=== PATIENT | female | born 1985 ===

== ENCOUNTER 2017-07-28 15:40 | Emergency (ER) | payer SELFPAY ==
[2017-07-28 15:49] VITALS: BP 136/86; PULSE 66; RESP 18; TEMP 97.6; O2SAT 100
== END 2017-07-28 17:58 | disposition left against medical advice (07) ==
LOC: NED 15:40
DX: R10.9 Unspecified abdominal pain (principal); Z53.21 Procedure and treatment not carried out due to patient leaving prior to being seen by health care provider
CPT/HCPCS: 99281